=== PATIENT | female | born 1980 | race Caucasian/White ===

== ENCOUNTER 2021-04-11 11:19 | Day surgery (SDC) | payer OTHER ==
[2021-04-08 14:25] VITALS: BMI 20.1
--- NOTE | 2021-04-09 16:34 | P.HPOB ---
History of Present Illness H&P Date: 04/09/21 Chief Complaint: Uterine bleeding and fibroid uterus Patient is a 40-year-old female with history of menstrual irregularities and dysfunctional uterine bleeding. Ultrasound had been done showing possible polyp versus fibroid in the endometrium and she is therefore scheduled for a D&C with hysteroscopy and Mayeaux sure to remove uterine lesion. Risks/benefits/alternatives to this procedure were reviewed with the patient in detail and all questions were answered for her prior to proceeding to the operating room. Past Medical History Additional Past Medical History / Comment(s): migraines, scoliosis, states heavy & frequent menstrual periods. History of Any Multi-Drug Resistant Organisms: None Reported Past Surgical History: Section, Tonsillectomy, Tubal Ligation Additional Past Surgical History / Comment(s): ear tubes, sinus surgery, bladder surgery (child) Past Anesthesia/Blood Transfusion Reactions: No Reported Reaction Past Psychological History: No Psychological Hx Reported Smoking Status: Current every day smoker, Heavy tobacco smoker Past Alcohol Use History: None Reported Additional Past Alcohol Use History / Comment(s): smokes 1 ppd, started smoking age 14 Past Drug Use History: None Reported - Past Family History Father Family Medical History: Cancer Additional Family Medical History / Comment(s): bone cancer Medications and Allergies Home Medications Medication Instructions Recorded Confirmed Type Cholecalciferol [Vitamin D3 (25 25 mcg PO DAILY 04/08/21 04/08/21 History Mcg = 1000 Iu)] Ibuprofen 400 mg PO DIRECTED PRN 04/08/21 04/08/21 History Vitamin B Complex 1 each PO DAILY 04/08/21 04/08/21 History Allergies Allergy/AdvReac Type Severity Reaction Status Date / Time No Known Allergies Allergy Verified 04/08/21 14:05 Exam Osteopathic Statement: *. No significant issues noted on an osteopathic structural exam other than those noted in the History and Physical/Consult. - OBG Physical Exam Breast: both: normal (no masses) Abdomen: bowel sounds normal, no diffuse tenderness, no bruit present, no guarding noted, no hepatomegaly, no splenomegaly, no mass Vulva: both: normal Vagina: normal moisture, no discharge Cervix: no lesion, no discharge Uterus: normal size, normal contour Adnexa: both: normal Anus/Rectum: normal perianal skin, no rectal mass, no hemorrhoids, heme negative
[2021-04-11] MEDS ORDERED: LACTATED RINGERS 1,000 ML IV ONE (11:55)
[2021-04-11] MEDS ORDERED: ONDANSETRON 4 MG/2 ML VIAL IVP ONE (11:55)
[2021-04-11] MEDS ORDERED: DEXAMETHASONE SOD PHOSPHATE 4 MG/ML 1 ML VIAL IVP ONE (11:56)
[2021-04-11] MEDS ORDERED: ONDANSETRON 4 MG/2 ML VIAL ONE (11:59)
[2021-04-11] MEDS ORDERED: LIDOCAINE 1% INJ 10MG/ML (20 ML MDV) ONE (12:16)
[2021-04-11] MEDS ORDERED: PROPOFOL 10 MG/ML 20 ML VIAL IV ONE (12:16)
[2021-04-11] MEDS ORDERED: MIDAZOLAM 2 MG/2 ML VIAL ONE (12:16)
[2021-04-11] MEDS ORDERED: fentaNYL (PF) 50 MCG/ML 2 ML AMP ONE (12:16)
--- NOTE | 2021-04-11 12:55 | P.OP ---
Date of Procedure: 04/11/21 Preoperative Diagnosis: Uterine mass Postoperative Diagnosis: Same Procedure(s) Performed: D&C with hysteroscopy and myosure Anesthesia: DESMOND Surgeon: Olegario Escamilla Estimated Blood Loss (ml): 5 Pathology: other (Uterine curettings) Condition: stable Disposition: same day Operative Findings: Polyp believed to be excised in total Description of Procedure: A she was taken to the operating suite where a general anesthetic was found be adequate. She was prepped and draped in normal sterile fashion and placed in the dorsal lithotomy position. Initially a weighted speculum was inserted in the vagina and the anterior lip of cervix identified and grasped with Allis clamp. Sharp retroverted uterus is noted therefore cervix is dilated and sounded to approximately 10 cm. Once this was completed camera was inserted polyp was noted at the right fundal region just superior to the tubal ostia myosure is used to excise the lesion in toto. This tissue was collected and sent to pathology for evaluation. No other areas or concerns are noted at this time therefore camera was removed and sharp curettings of the endometrium were obtained. This tissues collected, placed on Telfa, and sent to pathology for evaluation. All incidents were then removed. Sponge, lap, needle counts were all correct 2. Patient was then taken to the recovery room in stable and satisfactory condition. It is noted that the fluid deficit was 200 mL and the resection time was 23 seconds Plan - Discharge Summary Discharge Rx Participant: No New Discharge Prescriptions: New Ibuprofen [Motrin] 600 mg PO Q6HR PRN #30 tab PRN Reason: Pain No Action Cholecalciferol [Vitamin D3 (25 Mcg = 1000 Iu)] 25 mcg PO DAILY Ibuprofen 400 mg PO DIRECTED PRN PRN Reason: Headache Vitamin B Complex 1 each PO DAILY Discharge Medication List Cholecalciferol [Vitamin D3 (25 Mcg = 1000 Iu)] 25 mcg PO DAILY 04/08/21 [History] Ibuprofen 400 mg PO DIRECTED PRN 04/08/21 [History] Vitamin B Complex 1 each PO DAILY 04/08/21 [History] Ibuprofen [Motrin] 600 mg PO Q6HR PRN #30 tab 04/11/21 [Rx] Follow up Appointment(s)/Referral(s): Olegario Escamilla DO [Doctor of Osteopathic Medicine] - 1 Week Activity/Diet/Wound Care/Special Instructions: The lifting, limit stairs and driving and pelvic rest. If any high temperatures, heavy bleeding, or severe pain call my office Discharge Disposition: HOME SELF-CARE
[2021-04-11] MEDS ORDERED: KETOROLAC 15 MG/ML 1 ML VIAL IVP ONE (12:56)
[2021-04-11 13:05] VITALS: TEMP 97.6
[2021-04-11 13:57] VITALS: BP 127/84; PULSE 74; RESP 16
== END 2021-04-11 14:05 | disposition home or self-care (01) ==
LOC: OR 11:19
PROVIDERS: ATTEND Obstetrics & Gynecology
DX: N84.0 Polyp of corpus uteri (principal); N93.8 Other specified abnormal uterine and vaginal bleeding; N85.4 Malposition of uterus; G43.909 Migraine, unspecified, not intractable, without status migrainosus; M41.9 Scoliosis, unspecified; Z98.891 History of uterine scar from previous surgery; Z90.89 Acquired absence of other organs; Z98.51 Tubal ligation status; Z98.890 Other specified postprocedural states; F17.210 Nicotine dependence, cigarettes, uncomplicated; Z80.8 Family history of malignant neoplasm of other organs or systems
CPT/HCPCS: 58558; 81025; 88305; J2250; J1100; J0690; J2405; J2001; J3010; J1885; J2704

== ENCOUNTER → 2021-12-28 | Outpatient (CLI) | payer OTHER ==
[2021-12-28 18:57] LABS: Basophils # (A) 0.03 X 10*3/uL (0.00-0.10); Basophils % (A) 0.3 %; Eosinophils # (A) 0.22 X 10*3/uL (0.04-0.35); Eosinophils % (A) 2.5 %; HGB 12.1 g/dL (12.0-15.0); Lymphocytes % (A) 15.7 %; MCH 29.7 pg (27.0-32.0); MCHC 33.6 g/dL (32.0-37.0); MCV 88.2 fL (80.0-97.0); Mean Platelet Volume 10.7 fL (9.5-12.2); Monocytes # (A) 0.54 X 10*3/uL (0.20-1.00); Monocytes % (A) 6.1 %; Neutrophils # (A) 6.68 X 10*3/uL (1.80-7.70); Neutrophils % (A) 75.2 %; Platelet Count 326 X 10*3/uL (140-440); RBC 4.08 X 10*6/uL (4.10-5.20); RDW 13.1 % (11.5-14.5); WBC 8.89 X 10*3/uL (4.50-10.00)
[2021-12-28 19:04] LABS: African American GFR (CKD) 93.9 (60.0-200.0); Anion Gap 10.9 mmol/L (10.00-18.00); BUN/Creat Ratio 11.77 Ratio (12.00-20.00); Blood Urea Nitrogen 10.3 mg/dL (9.0-27.0); Carbon Dioxide 21.3 mmol/L (20.0-27.5); Potassium 4.6 mmol/L (3.5-5.5)
== END | disposition home or self-care (01) ==
LOC: LABPAT 09:42
PROVIDERS: ATTEND Obstetrics & Gynecology
DX: Z01.812 Encounter for preprocedural laboratory examination (principal)
CPT/HCPCS: 36415; 80048; 85025

== ENCOUNTER 2022-01-02 05:51 | Day surgery (SDC) | payer OTHER ==
[2021-12-27 15:54] VITALS: BMI 19.5
[~2022-01-02 05:51] MED LIST: DEXAMETHASONE SOD PHOSPHATE 4 MG/ML 1 ML VIAL IV ONE; ONDANSETRON 4 MG/2 ML VIAL IVP ONE
[2022-01-02] MEDS: LACTATED RINGERS 1,000 ML IV SCH ×2 (06:44→07:09)
[2022-01-02] MEDS ORDERED: LIDOCAINE 1% (10MG/ML) FOR IV START INTRADERMA ONE (06:45)
--- NOTE | 2022-01-02 06:56 | P.HPOB ---
History of Present Illness H&P Date: 01/02/22 Chief Complaint: Menorrhagia with irregular cycle 41-year-old presents for total laparoscopic hysterectomy and bilateral salpingectomy using da Morgan, possible total abdominal hysterectomy. She has very heavy periods twice a month that are prolonged. It is interfering with her activities of daily living lip going to work at least a few times a month. She also has had some anemia with this, thyroid studies were negative. Patient presents for definitive treatment for the bleeding. Review of Systems All systems: negative Constitutional: Denies chills, Denies fever Eyes: denies blurred vision, denies pain Ears, nose, mouth and throat: Denies headache, Denies sore throat Cardiovascular: Denies chest pain, Denies shortness of breath Respiratory: Denies cough Gastrointestinal: Denies abdominal pain, Denies diarrhea, Denies nausea, Denies vomiting Genitourinary: Denies dysuria, Denies hematuria Musculoskeletal: Denies myalgias Integumentary: Denies pruritus, Denies rash Neurological: Denies numbness, Denies weakness Psychiatric: Denies anxiety, Denies depression Endocrine: Denies fatigue, Denies weight change Past Medical History Past Medical History: Hypertension Additional Past Medical History / Comment(s): migraines, scoliosis, states heavy & frequent menstrual periods. HYPERTENSION WAS ONLY TAKEN FOR 1 MONTH IN [address] FELT IT WAS DUE TO ANXIETY" History of Any Multi-Drug Resistant Organisms: None Reported Past Surgical History: Section, Tonsillectomy, Tubal Ligation Additional Past Surgical History / Comment(s): ear tubes, sinus surgery, bladder surgery (child) Past Anesthesia/Blood Transfusion Reactions: No Reported Reaction Past Psychological History: No Psychological Hx Reported Smoking Status: Current every day smoker Past Alcohol Use History: Rare Additional Past Alcohol Use History / Comment(s): smokes 1 ppd, started smoking age 14 Past Drug Use History: None Reported - Past Family History Father Family Medical History: Cancer Additional Family Medical History / Comment(s): bone cancer Medications and Allergies Home Medications Medication Instructions Recorded Confirmed Type Cholecalciferol [Vitamin D3 (25 25 mcg PO DAILY 04/08/21 01/02/22 History Mcg = 1000 Iu)] Ibuprofen 400 mg PO DIRECTED PRN 04/08/21 01/02/22 History Vitamin B Complex 1 each PO DAILY 04/08/21 01/02/22 History Allergies Allergy/AdvReac Type Severity Reaction Status Date / Time No Known Allergies Allergy Verified 01/02/22 06:11 Exam Osteopathic Statement: *. No significant issues noted on an osteopathic structural exam other than those noted in the History and Physical/Consult. Vital Signs Temp Pulse Resp BP Pulse Ox 01/02/22 06:17 98.0 F 71 16 147/88 99 Intake and Output 01/01/22 01/01/22 01/02/22 14:59 22:59 06:59 Other: Weight 47.1 kg Heart: Regular rate and rhythm Lungs: Clear to auscultation bilaterally Abdomen: Soft, nontender Extremities: Negative Homans sign Assessment and Plan (1) Menorrhagia with irregular cycle Current Visit: Yes Status: Acute Code(s): N92.1 - EXCESSIVE AND FREQUENT MENSTRUATION WITH IRREGULAR CYCLE SNOMED Code(s): 694663383 Plan: 1. Total laparoscopic hysterectomy bilateral salpingectomy using da Morgan and diagnostic cystoscopy possible total abdominal hysterectomy
[2022-01-02] MEDS ORDERED: KETOROLAC 15 MG/ML 1 ML VIAL ONE (07:06)
[2022-01-02] MEDS ORDERED: NEOSTIGMINE 1 MG/ML 10 ML VIAL ONE (07:06)
[2022-01-02] MEDS ORDERED: GLYCOPYRROLATE 0.2 MG/ML 2 ML VIAL ONE (07:06)
[2022-01-02] MEDS ORDERED: LIDOCAINE 1% INJ 10MG/ML (20 ML MDV) ONE (07:06)
[2022-01-02] MEDS ORDERED: fentaNYL (PF) 50 MCG/ML 2 ML AMP ONE (07:06)
[2022-01-02] MEDS ORDERED: MIDAZOLAM 2 MG/2 ML VIAL ONE (07:06)
[2022-01-02] MEDS ORDERED: PROPOFOL 10 MG/ML 20 ML VIAL IV ONE (07:06)
[2022-01-02] MEDS ORDERED: SUCCINYLCHOLINE CHLORIDE 100 MG/5 ML SYR IV ONE (07:06)
[2022-01-02] MEDS ORDERED: ROCURONIUM 10 MG/ML (5 ML VIAL) IV ONE (07:06)
[2022-01-02] MEDS ORDERED: BUPIVACAINE (PF) 0.25% 30 ML VIAL SQ ONE (07:45)
[2022-01-02] MEDS: HYDROmorphone 0.5 MG/0.5 ML SYRINGE IVP PRN ×2 (09:02→09:08)
[2022-01-02] MEDS ORDERED: Acetaminophen-Codeine 300-30mg TAB PO PRN (09:40)
[2022-01-02] MEDS ORDERED: METOCLOPRAMIDE 5 MG/ML 2 ML VIAL IVP PRN (09:40)
[2022-01-02] MEDS ORDERED: KETOROLAC 30 MG/ML 1 ML VIAL IVP PRN (09:40)
--- NOTE | 2022-01-02 11:43 | P.OP ---
Date of Procedure: 01/02/22 Preoperative Diagnosis: 1. Menorrhagia with irregular cycle Postoperative Diagnosis: 1. Menorrhagia with irregular cycle Procedure(s) Performed: Total laparoscopic hysterectomy bilateral salpingectomy using da Morgan, diagnostic cystoscopy. Anesthesia: DESMOND Surgeon: Sangeetha Tomlin Home Theatre Technician #1: Olegario Escamilla Estimated Blood Loss (ml): 50 IV fluids (ml): 800 Urine output (ml): 150 Pathology: other (Uterus, cervix, bilateral fallopian tubes) Condition: stable Disposition: PACU Operative Findings: Normal appearing uterus, cervix, bilateral tubes and ovaries. Filshie clips noted on the fallopian tubes. When I did the cystoscopy there were 2 scratches inside the bladder on the right side towards the posterior aspect. I had an intraoperative consult with Dr. Richter, urology, who advised these were not full-thickness cuts and did not really repair but maintaining a Massey catheter for a few days to be a good idea. Description of Procedure: Patient taken the operating room where general anesthesia was obtained without difficulty. She is prepped and draped in normal sterile fashion dorsal lithotomy position, legs placed in the Topher stirrups. Weighted speculum placed in the vagina and the anterior lip the cervix was grasped with single-tooth tenaculum. The uterus sounded to 8 cm and the cervix diameter was 3.5 cm. The appropriate manipulator tip and ring were placed on the Bridget manipulator. The Bridget manipulator was then placed in the uterus. Massey catheter was also placed. Attention was then turned to the abdomen and gloves were changed. A 5 mm supraumbilical incision was made the scalpel and a 5 mm optical trocar was placed under direct visualization. 10 cm to the right of this and 2 cm down a 5 mm incision was made and 8 mm da Morgan port was placed under direct visualization. Same measurements on the opposite side of the patient's abdomen, the 5 mm incision was made and 8 mm da Morgan port was placed under direct visualization. In the left upper quadrant a 10 mm incision was made and a 10 mm optical trocar was placed under direct visualization. The 5 mm optical trocar was then replaced with the 8 mm da Morgan camera port. The robot was docked on patient's right side. The camera was introduced and then the monopolar curved scissor and [place] bipolar placed under direct visualization. I broke scrub and went to the physician console. The left mesosalpinx was cauterized with the [place] bipolar and cut with monopolar curved scissors to free the fallopian tube. The left round ligament and utero-ovarian ligaments were cauterized with the [place] bipolar and cut with monopolar curved scissors. The posterior leaf of the broad ligament was taken down using the monopolar curved scissors. Anterior leaf of the broad ligament was then taken down using the monopolar curved scissors. The uterine artery was cauterized with the [place] bipolar and cut with monopolar curved scissors. The bladder flap was then started using the monopolar curved scissors. Attention was then turned to the right side of the patient's anatomy and the right mesosalpinx was cauterized with the [place] bipolar and cut with monopolar curved scissors to free the right fallopian tube. The right round ligament and utero-ovarian ligaments were cauterized with the [place] bipolar and cut with monopolar curved scissors. Posterior leaf of the broad ligament was taken down using the monopolar curved scissors and the anterior leaf was taken down using the monopolar curved scissors. The uterine artery was cauterized the [place] bipolar cut with monopolar curved scissors. The bladder flap was then finished on this side. Anterior colpotomy was made using the monopolar curved scissors. The rest of the uterus was from the vaginal cuff by following the ring around with the monopolar curved scissors through the uterosacral ligaments back to the anterior portion. Once the uterus and cervix were amputated they were pulled through the vaginal cuff. Hemostasis was assured. The instruments were changed for the Cardier forcep and the tin suture cut. The vaginal cuff was then closed using O stratafix barbed suture in a running fashion. Hemostasis was again assured and the pelvis was irrigated. All instruments were removed from the abdomen and the robot was undocked. I scrubbed back in to perform a cystoscopy. There were jets from both ureteral orifices. I noted to very small lesions that appeared to be scratches in the bladder on the right side posterior aspect. I called for urology to come lock to make sure we do not need to repair. Dr. Richter came to the room and took a close look via cystoscopy. We agree that these were not full-thickness cuts and did not need repair. He advised that we keep the catheter in a few more days to rest the bladder and she should recover well. The abdominal incisions were closed with 4-0 Vicryl in a subcuticular fashion. Patient tolerated the procedure well, sponge and instrument counts correct 2 and she was taken to recovery room in stable condition condition
[2022-01-02] MEDS: Acetaminophen-Codeine 300-30mg TAB PO PRN ×2 (13:44→23:40)
[2022-01-03] MEDS: Acetaminophen-Codeine 300-30mg TAB PO PRN ×3 (03:42→11:44)
[2022-01-03 07:35] LABS: Basophils % (A) 0 %; Eosinophils # (A) 0.1 k/uL (0-0.7); Eosinophils % (A) 1 %; HCT 35.9 % (34.0-46.0); Lymphocytes # (A) 2.2 k/uL (1.0-4.8); Lymphocytes % (A) 24 %; MCH 30.3 pg (25.0-35.0); MCHC 33.4 g/dL (31.0-37.0); MCV 90.7 fL (80.0-100.0); Mean Platelet Volume 7.3; Monocytes # (A) 0.4 k/uL (0-1.0); Monocytes % (A) 4 %; Neutrophils # (A) 6.3 k/uL (1.3-7.7); Neutrophils % (A) 69 %; Platelet Count 300 k/uL (150-450); RBC 3.96 m/uL (3.80-5.40); RDW 13.4 % (11.5-15.5); WBC 9.2 k/uL (3.8-10.6)
--- NOTE | 2022-01-03 07:47 | P.DS ---
Providers Expected date of discharge: 01/03/22 Attending physician: Sangeetha Tomlin Primary care physician: Leo Zelaya - Discharge Diagnosis(es) (1) Menorrhagia with irregular cycle Current Visit: Yes Status: Resolved (2) Status post robot-assisted surgical procedure TLH BS and diagnostic cystoscopy POD #1 Current Visit: Yes Status: Acute Hospital Course: Patient presented for a total laparoscopic hysterectomy and bilateral salpingectomy with da Morgan and diagnostic cystoscopy. She underwent this procedure and had a complication of some scratches on her bladder and the internal aspect. Patient's pain is well-controlled. She denies nausea, vomiting, chest pain, shortness of breath or any calf pain. Her incisions are clean, dry, intact. She is having no vaginal bleeding. She is passing flatus and ambulating, voiding, tolerating regular diet. I explained to the patient that she needs to wear a Massey catheter for the next 5-7 days. She expresses understanding and says she has a history of home care and understands how to use this. I will still have the nursing do some teaching. Discharge instructions were reviewed and patient will follow-up with me in 5-7 days to have her Massey catheter removed. Plan - Discharge Summary Discharge Rx Participant: No New Discharge Prescriptions: New Acetaminophen-Codeine 300-30mg [Tylenol #3] 1 - 2 tab PO Q6H PRN #24 tablet PRN Reason: Pain Ibuprofen [Motrin] 600 mg PO Q6HR PRN #40 tab PRN Reason: Mild Pain Or Fever >= 100.5 No Action Cholecalciferol [Vitamin D3 (25 Mcg = 1000 Iu)] 25 mcg PO DAILY Ibuprofen 400 mg PO DIRECTED PRN PRN Reason: Headache Vitamin B Complex 1 each PO DAILY Discharge Medication List Cholecalciferol [Vitamin D3 (25 Mcg = 1000 Iu)] 25 mcg PO DAILY 04/08/21 [History] Ibuprofen 400 mg PO DIRECTED PRN 04/08/21 [History] Vitamin B Complex 1 each PO DAILY 04/08/21 [History] Acetaminophen-Codeine 300-30mg [Tylenol #3] 1 - 2 tab PO Q6H PRN #24 tablet 01/03/22 [Rx] Ibuprofen [Motrin] 600 mg PO Q6HR PRN #40 tab 01/03/22 [Rx] Follow up Appointment(s)/Referral(s): Sangeetha Tomlin DO [Doctor of Osteopathic Medicine] - 1 Week Discharge Disposition: HOME SELF-CARE
[2022-01-03] MEDS: SIMETHICONE 80 MG CHEWABLE PO PRN ×2 (07:58→11:44)
[2022-01-03 08:38] VITALS: BP 144/76; PULSE 60; RESP 16; TEMP 97.6
== END 2022-01-03 12:12 | disposition home or self-care (01) ==
LOC: OR 05:51 → 4FBP 08:54 → OR 01-03 12:12
PROVIDERS: ATTEND Obstetrics & Gynecology
DX: N92.1 Excessive and frequent menstruation with irregular cycle (principal); Z20.822 Contact with and (suspected) exposure to COVID-19
CPT/HCPCS: 58571; S2900; 81025; 85025; 86850; 86900; 86901; 87635; 88307